=== PATIENT | female | born 1950 | race Caucasian/White ===

== ENCOUNTER 2021-02-15 01:56 | Emergency (ER) | payer MEDICARE, BC ==
--- NOTE | 2021-02-15 02:20 | EDM.PDOC ---
ED HPI GENERAL MEDICAL PROBLEM - General Chief Complaint: General Stated Complaint: "I have a cold" Time Seen by Provider: 02/15/21 02:00 Source of Information: Reports: Patient History Limitations: Reports: No Limitations - History of Present Illness INITIAL COMMENTS - FREE TEXT/NARRATIVE: Mary is a 70 year old female who presents to ER with complaints of a bad cold. Has had for 12 days now and has not been able to sleep for the last 3 days. Has been up in the chair much of the time as when she lays down, the cough is much worse. Has been moist but nonproductive. Now developing ear pain and a sore throat. Denies shortness of breath or wheezing. No fever. Did contact Dr. Snyder on Tuesday by email and was placed on a cough pill but hasn't found that to be effective. Has had the covid vaccine. Onset: Gradual Duration: Day(s):, Getting Worse Location: Reports: Head, Chest Quality: Reports: Ache Severity: Mild Associated Symptoms: Reports: Cough. Denies: Confusion, Chest Pain, cough w sputum, Fever/Chills, Loss of Appetite, Nausea/Vomiting, Shortness of Breath Treatments [employer]ER: Reports: Other Medication(s) (cough medicine) L EAR AND THROAT Pain Score (Numeric/FACES): 8 - Related Data Allergies Allergy/AdvReac Type Severity Reaction Status Date / Time No Known Allergies Allergy Verified 02/15/21 02:04 Home Meds: Home Meds Cefuroxime [Ceftin] 250 mg PO BID #16 tab 02/15/21 [Rx] Cholecalciferol (Vitamin D3) [Vitamin D] 5,000 units PO DAILY 02/15/21 [History] Magnesium 500 mg PO DAILY 02/15/21 [History] Zinc 50 mg PO DAILY 02/15/21 [History] amLODIPine [Norvasc] 5 mg PO DAILY 02/15/21 [History] atorvaSTATin [Lipitor] 20 mg PO DAILY 02/15/21 [History] hydroCHLOROthiazide [Hydrochlorothiazide] 25 mg PO DAILY 02/15/21 [History] lisinopriL [Lisinopril] 40 mg PO DAILY 02/15/21 [History] predniSONE 20 mg PO WITHBREAKFAST #6 tab 02/15/21 [Rx] Past Medical History Cardiovascular History: Reports: High Cholesterol, Hypertension Oncologic (Cancer) History: Reports: Breast Social & Family History - Tobacco Use Tobacco Use Status *Q: Unknown Ever Used Tobacco ED ROS GENERAL - Review of Systems Review Of Systems: See Below Constitutional: Reports: Chills, Malaise, Weakness, Fatigue. Denies: Fever, Decreased Appetite HEENT: Reports: Ear Pain, Rhinitis, Throat Pain. Denies: Sinus Problem Respiratory: Reports: Cough. Denies: Shortness of Breath, Sputum Cardiovascular: Denies: Chest Pain, Edema, Lightheadedness Endocrine: Denies: Fatigue GI/Abdominal: Denies: Abdominal Pain, Constipation, Diarrhea, Nausea, Vomiting : Denies: Dysuria, Flank Pain Musculoskeletal: Reports: No Symptoms Skin: Reports: No Symptoms Neurological: Reports: Weakness ED EXAM, GENERAL - Physical Exam Exam: See Below Exam Limited By: No Limitations General Appearance: Alert, WD/WN, No Apparent Distress Ears: Normal External Exam, Normal TMs Nose: Normal Inspection, Normal Mucosa, Nasal Drainage Throat/Mouth: Normal Inspection, Normal Oropharynx Head: Normocephalic Neck: Normal Inspection, Supple, Non-Tender Respiratory/Chest: No Respiratory Distress, Lungs Clear, Normal Breath Sounds Cardiovascular: Regular Rate, Rhythm GI/Abdominal: Normal Bowel Sounds, Soft, Non-Tender Extremities: Normal Inspection, No Pedal Edema Neurological: Alert, Oriented Skin Exam: Warm, Dry Course - Vital Signs Last Recorded V/S: Last Vital Signs Temp 97 F 02/15/21 02:25 Pulse 91 02/15/21 02:25 Resp 20 02/15/21 02:25 BP 130/73 02/15/21 02:25 Pulse Ox 97 02/15/21 02:25 - Orders/Labs/Meds Orders: Active Orders 24 hr Category Date Time Status Chest 2V [CR] Stat Exams 02/15/21 02:03 Ordered Labs: Laboratory Tests 02/15/21 02/15/21 02/15/21 Range/Units 01:59 02:18 02:18 WBC 8.6 (4.0-11.0) 10^3/uL RBC 4.60 (4.00-5.50) x10^6/uL Hgb 13.3 (12.0-16.0) g/dL Hct 40.3 (37.0-47.0) % MCV 87.6 (83.0-97.0) fL MCH 28.9 (27.0-32.0) pg MCHC 33.0 (32.0-36.0) g/dL RDW Coeff of Barbara 13.1 (11.0-15.0) % Plt Count 260 (150-400) 10^3/uL Immature Gran % (Auto) 0.1 (0.0-4.9) % Neut % (Auto) 71.3 H (41-71) % Lymph % (Auto) 17.7 L (24-44) % Bracken % (Auto) 7.3 (0-10) % Eos % (Auto) 3.0 (0-6) % Baso % (Auto) 0.6 (0-1) % Neut # (Auto) 6.10 (1.80-8.00) x10^3/uL Lymph # (Auto) 1.51 (0.60-5.00) 10^3/uL Bracken # (Auto) 0.62 (0.00-1.50) 10^3/uL Eos # (Auto) 0.26 (0.00-1.50) 10^3/uL Baso # (Auto) 0.05 (0.00-0.50) 10^3/uL Immature Gran # (Auto) 0.01 (0.00-0.49) 10^3/uL Sodium 141 (136-145) mEq/L Potassium 4.2 (3.5-5.0) mEq/L Chloride 104 (98-106) mEq/L Carbon Dioxide 26 (21-32) mmol/L BUN 27 H D (7-18) mg/dL Creatinine 1.4 H D (0.6-1.0) mg/dL Est Cr Clr Drug Dosing 31.37 mL/min Estimated GFR (MDRD) 37 L (>=60) mL/min Glucose 105 H (75-99) mg/dL Calcium 9.4 (8.4-10.1) mg/dL Total Bilirubin 0.6 (0.0-1.0) mg/dL AST 19 (15-37) U/L ALT 18 (12-78) U/L Alkaline Phosphatase 107 (46-116) U/L C-Reactive Protein 4.6 H (0.2-0.8) mg/dL Total Protein 7.9 (6.4-8.2) g/dL Albumin 3.6 (3.4-5.0) g/dL SARS CoV-2 RNA Rapid QUENTIN Negative (NEGATIVE) - Re-Assessments/Exams Free Text/Narrative Re-Assessment/Exam: 02/15/21 02:40 WBC is normal. CRP 4.6. Creatinine 1.4. Chest xray shows questionable infiltrate to RML. Departure - Departure Time of Disposition: 02:42 Disposition: Home, Self-Care 01 Condition: Good Clinical Impression: RML pneumonia Qualifiers: Pneumonia type: due to unspecified organism Qualified Code(s): J18.9 - Pneumonia, unspecified organism - Discharge Information *PRESCRIPTION DRUG MONITORING PROGRAM REVIEWED*: No *COPY OF PRESCRIPTION DRUG MONITORING REPORT IN PATIENT AMOS: No Instructions: Community-Acquired Pneumonia, Adult, [id number] Forms: ED Department Discharge Additional Instructions: 1. Push fluids 2. Tylenol for headache 3. Prometh with codeine- 1 teaspoon every 4-6 hours at night, use your cough pills during the day 4. Ceftin 250 mg twice a day for 10 days 5. Prednisone 40 mg daily for 5 days 6. Follow up with Dr. Snyder for persisting concerns. Sepsis Event Note (ED) - Focused Exam Vital Signs: Vital Signs Temp Pulse Resp BP Pulse Ox 02/15/21 02:25 97 F 91 20 130/73 97 02/15/21 02:09 97 F 91 20 130/73 97 - My Orders Last 24 Hours: My Active Orders 02/15/21 02:03 Chest 2V [CR] Stat - Assessment/Plan Last 24 Hours: My Active Orders 02/15/21 02:03 Chest 2V [CR] Stat
[2021-02-15] MEDS: Take Home: Codeine/Promethazine 10-6.25 MG/5 ML Syrup 5 ML, 2 Cup Pack PO ONE (02:48)
[2021-02-15] MEDS: Take Home: predniSONE 20 MG, 2 Tab Pack PO ONE (02:49)
[2021-02-15] MEDS: Take Home: Cefuroxime 250 MG Tab, 2 Tab Pack PO ONE (02:49)
== END 2021-02-15 03:05 | disposition home or self-care (01) ==
LOC: CC.ED 01:56
DX: J18.9 Pneumonia, unspecified organism (principal); E78.00 Pure hypercholesterolemia, unspecified; I10 Essential (primary) hypertension; Z79.899 Other long term (current) drug therapy; Z20.822 Contact with and (suspected) exposure to COVID-19
CPT/HCPCS: 36415; 71046; 80053; 85025; 86140; 99283-25; 99284; A9270-GY; J7512; U0002

== ENCOUNTER 2022-04-27 10:52 | Emergency (ER) | payer MEDICARE, BC ==
[2022-04-27] MEDS ORDERED: Ondansetron 4 MG Tab.DIS PO ONE (12:27)
[2022-04-27] MEDS ORDERED: Acetaminophen/HYDROcodone 325-5 MG Tab PO ONE (12:27)
== END 2022-04-27 13:10 | disposition home or self-care (01) ==
LOC: CC.ED 10:52
DX: S42.291A Other displaced fracture of upper end of right humerus, initial encounter for closed fracture (principal); S00.83XA Contusion of other part of head, initial encounter; E78.00 Pure hypercholesterolemia, unspecified; I10 Essential (primary) hypertension; Z79.899 Other long term (current) drug therapy; W01.0XXA Fall on same level from slipping, tripping and stumbling without subsequent striking against object, initial encounter
CPT/HCPCS: 70450; 73030-RT; 99284; A9270-GY

== ENCOUNTER 2022-04-28 15:52 | Observation (INO) | payer MEDICARE, BC ==
[2022-04-28] MEDS ORDERED: Ondansetron 4 MG/2 ML SDV IVPUSH PRN (16:24)
[2022-04-28] MEDS ORDERED: HYDROmorphone 1 MG/ML Syringe IVPUSH ONE (16:25)
[2022-04-28] MEDS ORDERED: Sodium Chloride 0.9% 1,000 ML IV SCH (16:30)
[2022-04-28] MEDS ORDERED: HYDROmorphone 1 MG/ML Syringe SUBCUT ONE (16:37)
[2022-04-28] MEDS ORDERED: Ondansetron 4 MG Tab.DIS PO ONE ×2 (16:39→17:45)
[2022-04-28] MEDS ORDERED: Sodium Chloride 0.9% 1,000 ML IV ONE (18:49)
[2022-04-28] MEDS ORDERED: Promethazine 12.5 MG in Sodium Chloride 0.9% 100 ML IV ONE (18:49)
[2022-04-28] MEDS ORDERED: Polyethylene Glycol 3350 Powder 17 GM Packet PO PRN (19:07)
[2022-04-28] MEDS ORDERED: Enoxaparin 40 MG/0.4 ML Syringe SUBCUT SCH (19:15)
[2022-04-28] MEDS ORDERED: Acetaminophen/oxyCODONE 325-5 MG Tab PO PRN (19:40)
[2022-04-28] MEDS ORDERED: Ondansetron 4 MG Tab.DIS PO PRN (19:40)
[2022-04-28] MEDS: Docusate Sodium 100 MG Cap PO SCH (20:35)
[2022-04-29] MEDS ORDERED: Lisinopril 20 MG Tab PO SCH (08:00)
[2022-04-29] MEDS ORDERED: amLODIPine 2.5 MG Tab PO SCH (08:00)
[2022-04-29] MEDS ORDERED: atorvaSTATin 20 MG Tab PO SCH (08:00)
[2022-04-29] MEDS ORDERED: Hydrochlorothiazide 25 MG Tab PO SCH (08:00)
[2022-04-29] MEDS: Docusate Sodium 100 MG Cap PO SCH (08:17)
== END 2022-04-29 13:30 | disposition home or self-care (01) ==
LOC: CC.ED 15:52 → UNDOADMOB 18:33 → CC.MS 18:33
PROVIDERS: ADMIT Nurse Practitioner Family; ATTEND Nurse Practitioner Family
DX: S00.83XD Contusion of other part of head, subsequent encounter (principal); S42.291D Other displaced fracture of upper end of right humerus, subsequent encounter for fracture with routine healing; R11.2 Nausea with vomiting, unspecified; R55 Syncope and collapse; I10 Essential (primary) hypertension; E78.00 Pure hypercholesterolemia, unspecified; Z79.899 Other long term (current) drug therapy; Z90.49 Acquired absence of other specified parts of digestive tract
CPT/HCPCS: 36415; 70450; 80048; 81001; 83735; 85025; 97161-GP; A9270-GY; J1170; J1650; J7030

== ENCOUNTER 2022-10-26 15:13 | Emergency (ER) | payer MEDICARE ==
[2022-10-26] MEDS ORDERED: Lidocaine/Prilocaine 2.5-2.5% Crm 5 GM Tube TOP ONE (15:25)
[2022-10-26] MEDS ORDERED: Lidocaine 1% with EPINEPHrine 1:100,000 20 ML MDV INJECT ONE (15:27)
[2022-10-26] MEDS ORDERED: Diphtheria,Pertussis(Acell),Tetanus Vaccine 0.5 ML Syringe IM ONE (15:38)
[2022-10-26] MEDS ORDERED: Bacitracin/Neomycin/Polymyxin B Oint 0.9 GM U/D Packet TOP ONE (16:24)
== END 2022-10-26 16:37 | disposition home or self-care (01) ==
LOC: CC.ED 15:13
DX: S81.812A Laceration without foreign body, left lower leg, initial encounter (principal); E78.00 Pure hypercholesterolemia, unspecified; I10 Essential (primary) hypertension; Z23 Encounter for immunization; Z79.899 Other long term (current) drug therapy; W22.8XXA Striking against or struck by other objects, initial encounter
CPT/HCPCS: 12002; 90471; 90715; 99282; A9270-GY; J3490